=== PATIENT | male | born 1955 | race African-American/Black ===

== ENCOUNTER → 2017-03-04 | Outpatient (CLI) | payer OTHER | LOC: CAT 07:53 | DX: Z13.6 Encounter for screening for cardiovascular disorders (principal) ==

== ENCOUNTER → 2020-12-02 | Outpatient (CLI) | payer OTHER | LOC: CAT 11:52 | PROVIDERS: ATTEND Internal Medicine Cardiovascular Disease | DX: Z13.6 Encounter for screening for cardiovascular disorders (principal) ==

== ENCOUNTER → 2020-12-30 | Outpatient (CLI) | payer OTHER | LOC: SJCVCIMAG 10:59 | PROVIDERS: ATTEND Internal Medicine Cardiovascular Disease | DX: K76.89 Other specified diseases of liver (principal); K86.89 Other specified diseases of pancreas; R93.1 Abnormal findings on diagnostic imaging of heart and coronary circulation; I10 Essential (primary) hypertension; E78.00 Pure hypercholesterolemia, unspecified; K76.9 Liver disease, unspecified; Z82.49 Family history of ischemic heart disease and other diseases of the circulatory system; Z87.891 Personal history of nicotine dependence; Z72.89 Other problems related to lifestyle; Z79.899 Other long term (current) drug therapy ==